=== PATIENT | female | born 1940 | race Caucasian/White ===

== ENCOUNTER → 2017-08-23 16:49 | Outpatient (CLI) | payer MEDICARE | END | disposition home or self-care (01) | LOC: D.MRI 16:49 | DX: M54.5 Low back pain (principal) ==

== ENCOUNTER → 2020-05-11 09:35 | Outpatient (CLI) | payer MEDICARE ==
--- NOTE | ~2020-05-11 | ST ---
PATIENT:TERRANCE CAMPOS MEDICAL RECORD: [id number] SEX: F LOCATION:[facility] ORDER #: ADMISSION DATE: 05/11/20 AGE OF PATIENT: 79 REFERRING PHYSICIAN: INTERPRETING PHYSICIAN: RICHARDSON MANN MD DATE OF SERVICE: 05/11/2020 NUCLEAR STRESS TEST Gated: Gated is normal, normal wall motion, normal EF, calculated EF 67%. SPECT imaging: SPECT imaging was performed. FINDINGS: Short axis view: Short axis view shows a reversible anterior defect. This was confirmed. Horizontal axis: Horizontal axis view shows reversible anterior defect along the anterior and anterior apical region. Vertical axis: Vertical axis confirms apical reversible defect. FINAL IMPRESSION: 1. Normal gated, normal wall motion, normal EF 67%. 2. Abnormal SPECT imaging with reversible defect seen in all 3 views. Severity is moderate, defect size is medium. This patient with new onset of symptoms. Scan is consistent with a new onset of ischemic coronary artery disease. Diagnostic angiography is recommended if clinically indicated. TRANSINT:[id number] Voice Confirmation ID: [id number] DOCUMENT ID: [id number] RICHARDSON MANN MD CC: [id number] DICTATION DATE: 05/12/20 09 MATHEMATICAL STATISTICIAN: 05/12/202122 DEP CLI 05/11/20 [facility] [address] [id number]
== END | disposition home or self-care (01) ==
LOC: D.HCCARDIO 09:35 → D.HCCECHO 12:30
PROVIDERS: ATTEND Internal Medicine Interventional Cardiology
DX: I20.9 Angina pectoris, unspecified (principal)

== ENCOUNTER → 2020-05-26 11:04 | Day surgery (SDC) | payer MEDICARE ==
[~2020-05-26] VITALS: Ht 162.6 cm; Wt 86.9 kg
--- NOTE | ~2020-05-26 | HEMODYNAMI ---
PATIENT:TERRANCE CAMPOS MEDICAL RECORD: [id number] : 36 [facility]ATION:[facility] ADMISSION DATE: 05/26/20 Generatedon:113:44 Patient name: TERRANCE CAMPOS Patient #: [id number] SSN: [id number] : 1940 Date of study: 05/26/2020 Page: Of Hemodynamic Procedure Report Patient Data Patient Demographics Procedure consent was obtained First Name: TERRANCE Gender: Female Last Name: BETH : 1940 Middle Initial: A Age: 79 year(s) Patient #: [id number] Race: SSN: [id number] Additional ID: [id number] Contact details Address: [address] [place] [address] State: [place] City: [place] Zip code: [address] Admission Admission Data Admission Date: 05/26/2020 Admission Time: 11:04 Arrival Date: 05/26/2020 Arrival Time: 13:00 Admit Source: Other Insurance Payor: Medicare Height (in.): 63.78 BSA: 1.92 (m2) Height (cm.): 162 BMI: 33.11 (kg/m2) Weight (lbs.): 191.58 Weight (kg.): 86.9 Lab Results Lab Result Date: 05/26/2020 Lab Result Time: 0:00 Biochemistry Name Units Result Min Max BUN mg/dl 18 --(---*)-- 7 18 Creatinine mg/dl 0.9 --(-*--)-- 0.6 1.3 CBC Name Units Result Min Max Hemoglobin g/dl 12.7 -*(----)-- 13.5 17.5 Procedure Procedure Types Cath Procedure Diagnostic Procedure [facility] w/Coronaries FFR/IVUS FFR Initial FFR Additional Sedation Charges Moderate Sedation 25-39 minutes PCI Procedure Coronary Stent Hemochron ACT Test Procedure Description Procedure Date Procedure Date: 05/26/2020 Procedure Start Time: 13:07 Procedure End Time: 13:40 Procedure Staff Name Function Rodrigue Manjarrez MD Performing Physician Kari Stiles RT Monitor Preeti Sharma RT Scrub Levon Felix RN Nurse Indication Chest pain Procedure Data Cath Procedure Fluoroscopy Diagnostic fluoroscopy Total fluoroscopy Time: 6.4 time: 6.4 min min Diagnostic fluoroscopy Total fluoroscopy dose: 782 dose: 782 mGy mGy Contrast Material Contrast Material Type Amount (ml) Isovue 300 125 Entry Location Entry Primary Successful Side Size Upsize Upsize Entry Closure Succes sful Closure Location (Fr) 1 (Fr) 2 (Fr) Remarks Device Remarks Femoral Right 5 Fr Exoseal artery Estimated blood loss: 5 ml Diagnostic catheters Device Type Used For End Catheter Placement MULTIPACK JL 4.0 5Fr Left Coronary catheter Angiography DIAGNOSTIC JL 5 5Fr Left Coronary catheter ([id number]) Angiography MULTIPACK 3DRC 5Fr Right Coronary catheter Angiography MULTIPACK Pigtail 5 Fr LV Angiography catheter MULTIPACK JL 4.0 5Fr Pressure catheter Measurement Procedure Complications No complications Procedure Medications Medication Administration Route Dosage 0.9% NaCl I.V. 100 ml/hr Oxygen etCO2 Nasal cannula 2 l/min Heparin Flush Bag added to field 2 bags (1000units/500ml NS) Lidocaine 2% added to field 20 Versed I.V. 1 mg Fentanyl I.V. 25 mcg Benadryl I.V. 50 mg Fentanyl I.V. 25 mcg Heparin Bolus I.V. 5000 units Hemodynamics Rest BSA: 1.92 (m2) HGB: 12.7 (g/dl) O2 Consumption: Estimated: 165.38 (ml/min) O2 Co nsumption indexed: Estimated:86.14 (ml/min/m) Heart Rate: 61 (bpm) Pressure Samples Time Site Value (mmHg) Purpose Heart Use Rate(bpm) 13:19 LV 134/27,54 Snapshot 77 13:19 AO 162/68(110) Pullback 75 13:19 LV 168/-6,17 Pullback 75 Gradients Valve Time Site 1 Site 2 Mean SEP/DFP Peak To Heart Use (mmHg) (sec/min) Peak Rate (mmHg) (bpm) Aortic 13:19 LV AO 8 25 6 75 168/-6,17 162/68(110) Calculations Valve P-P Mean Valve Index Valve Source Name Gradient Area Flow (cm2) Aortic 6 8 6 8 Snapshots Pre Cath Intra NCS Post Cath Vital Signs Time Heart Resp SPO2 etCO2 NIBP (mmHg) Rhythm Pain Sedation Rate (ipm) (%) (mmHg) Status Level (bpm) 12:53:13 57 14 100 37.9 171/71(112) NSR 0 (11) 10(A) , No pain 12:57:33 62 14 98 40.9 164/70(94) NSR 0 (11) 10(A) , No pain 13:01:51 72 11 97 0 156/75(114) NSR 0 (11) 10(A) , No pain 13:06:05 72 14 97 0 154/78(112) NSR 0 (11) 10(A) , No pain 13:10:19 74 16 97 0 149/81(111) NSR 0 (11) 10(A) , No pain 13:14:35 72 15 96 42.4 156/72(115) NSR 0 (11) 10(A) , No pain 13:18:47 72 15 96 38 142/77(112) NSR 0 (11) 10(A) , No pain 13:23:01 71 15 94 34.2 144/73(115) NSR 0 (11) 9(A) , No pain 13:27:15 69 15 96 40.9 150/73(111) NSR 0 (11) 9(A) , No pain 13:31:31 65 14 96 39.4 148/73(110) NSR 0 (11) 9(A) , No pain 13:35:47 63 16 96 36.4 150/71(119) NSR 0 (11) 10(A) , No pain 13:40:01 61 9 96 1.4 147/73(118) NSR 0 (11) 10(A) , No pain Medications Time Medication Route Dose Verified Delivered Reason Notes Effectiveness by by 12:57:04 0.9% NaCl I.V. 100 Levon Levon Per physician ml/hr Isidro Felix RN RN 12:57:14 Oxygen etCO2 2 Levon Levon for low 02 sats Nasal l/min Isidro Felix cannula RN RN 12:57:24 Heparin Flush added 2 Levon Levon used for Bag to bags Isidro Felix procedure (1000units/500ml field RN RN NS) 12:57:34 Lidocaine 2% added 20ml Levon Levon for local to vial Isidro Felix anesthetic field RN RN 12:57:42 Versed I.V. 1 mg Levon Levon for sedation Isidro Felix RN RN 12:57:51 Fentanyl I.V. 25 Levon Levon for sedation tisha Felix RN RN 12:58:00 Benadryl I.V. 50 mg Levon Levon Per physician Isidro Felix RN RN 13:04:57 Fentanyl I.V. 25 Levon Levon for sedation tisha Felix RN RN 13:23:51 Heparin Bolus I.V. 5000 Levon Levon for units Isidro Felix anticoagulation RN side seam tender Log Time Note 12:37:41 Informed consent obtained and on chart 12:38:02 Diagnostic Cath Status : Elective 12:38:19 Indication : Chest pain 12:38:25 Admit Source: Other 12:38:27 ACC Patient presents with Stable Angina CCS Anginal Class 2--Slight limitation of ordinary activity. 12:38:30 Procedure Status Elective Heart Cath (OP). 12:38:34 Time tracking: Regular hours (M-F 7:00 - 5:00) 12:38:38 Plan of Care:Hemodynamics will remain stable., Cardiac rhythm will remain stable., Comfort level will be maintained., Respiratory function will remain adequate., Patient/ family verbilizes understanding of procedure., Procedure tolerated without complication., Recovers from procedure without complications.. 12:38:42 Levon Felix RN sent for patient. Start room use. 12:43:12 H&P Date Dictated: 04/30/2020 Within 30 days and on chart.. 12:43:14 Pre-procedure instructions explained to patient. 12:43:14 Pre-op teaching completed and patient verbalized understanding. 12:43:15 Family in waiting room. 12:43:17 Patient NPO since Midnight. 12:43:25 Alarms reviewed by R. N. 12:43:25 Sharps counted by scrub and verified by R.N. 12:50:50 Patient received from Pre/Post Procedure Room to CCL 2 Alert and oriented. Tansferred to table in Supine position. 12:50:51 Warm blankets applied, and delia hugger turned on for patient comfort. 12:50:51 Correct patient and procedure confirmed by team. 12:50:52 Baseline sample Acquired. 12:50:52 ECG and BP/O2 sat monitors applied to patient. 12:50:52 Vital chart was started 12:51:31 Rhythm: sinus rhythm 12:51:34 Full Disclosure recording started 12:51:41 Is the patient allergic to Iodine/contrast media? No. 12:51:46 Was the patient premedicated? No 12:51:48 Is patient on blood thinner?No 12:51:49 Patient diabetic? No. 12:51:58 Previous problem with sedation/anesthesia? No ? 12:52:00 Snore? Yes 12:52:02 Sleep apnea? No 12:52:02 Deviated septum? No 12:52:03 Opens mouth fully? Yes 12:52:04 Sticks out tongue? Yes 12:52:06 Airway obstruction? No ? 12:52:10 Dentures? Yes in tight 12:52:14 Pre procedure: right dorsailis pedis pulse 2+ Normal; easily identifiable; not easily obliterated 12:52:16 Pre procedure: left dorsailis pedis pulse 2+ Normal; easily identifiable; not easily obliterated 12:52:18 Patient pain scale 0/10 ?. 12:52:23 IV patent on arrival in right forearm with 0.9% NaCl at [facility]. 12:52:25 Lab results completed and on chart. 12:53:19 Stress Test: no; N/A ? 12:53:23 Right groin area was prepped with chlora-prep and draped in sterile fashion 12:53:26 Physician arrived 12:53:26 --------ALL STOP TIME OUT------ 12:53:26 Final Timeout: patient, procedure, and site verified with staff and physician. All members of the team are in agreement. 12:53:30 Right groin site verified by team. 12:53:33 Fire Safety Assessment: A--An alcohol-based skin anteseptic being used preoperatively., C--Open oxygen or nitrous oxide is being used., D--An ESU, laser, or fiber-optic light is being used. 12:53:36 Physical assessment completed. ASA score P 2 - A patient with mild systemic disease as per Rodrigue Manjarrez MD. 12:57:04 0.9% NaCl 100 ml/hr I.V. was administered by Levon Felix RN; Per physician; Verbal order read back and verified. 12:57:14 Oxygen 2 l/min etCO2 Nasal cannula was administered by Levon Felix RN; for low 02 sats; Verbal order read back and verified. 12:57:22 Lab Result : BUN 18 mg/dl 12:57:22 Lab Result : Hemoglobin 12.7 g/dl 12:57:22 Lab Result : Creatinine 0.9 mg/dl 12:57:24 Heparin Flush Bag (1000units/500ml NS) 2 bags added to field was administered by Levon Felix RN; used for procedure; Verbal order read back and verified. 12:57:29 2) 60-89 Mildly reduced kidney function, and other findings (as for stage 1) point to kidney disease. 12:57:34 Lidocaine 2% 20ml vial added to field was administered by Levon Felix RN; for local anesthetic; Verbal order read back and verified. 12:57:42 Versed 1 mg I.V. was administered by Levon Felix RN; for sedation; Verbal order read back and verified. 12:57:51 Fentanyl 25 mcg I.V. was administered by Levon Felix RN; for sedation; Verbal order read back and verified. 12:58:00 Benadryl 50 mg I.V. was administered by Levon Felix RN; Per physician; Verbal order read back and verified. 12:58:31 Maximum allowable contrast dose (3.7 X eGFR X 0.75)177 ml. 12:58:35 Sedation plan: IV Moderate Sedation Medication:Versed, Fentanyl 12:59:32 Use device set Femoral Dx 12:59:33 ACIST Syringe (00343) opened to sterile field. 12:59:33 Bag Decanter () opened to sterile field. 12:59:34 Medline Cath Pack ([id number]) opened to sterile field. 12:59:35 ACIST Hand Control (61496) opened to sterile field. 12:59:35 ACIST Manifold (61383) opened to sterile field. 12:59:36 DIAGNOSTIC Multipack 5Fr catheter set (IH7120) opened to sterile field. 12:59:36 Tegaderm 4 x 4 (1626W) opened to sterile field. 12:59:37 SHEATH 5FR [place] (VSE661) opened to sterile field. 12:59:37 EMERALD Guide Wire (789-645) opened to sterile field. 13:02:44 Arrival Date: 05/26/2020 1:00:00 PM 13:03:02 Patient Height : 63.78 inches 13:03:04 Patient Weight : 191.58 lbs 13:03:10 Insurance Payor : Medicare 13:04:57 Fentanyl 25 mcg I.V. was administered by Levon Felix RN; for sedation; Verbal order read back and verified. 13:07:26 Procedure started. 13:07:29 Local anesthetic to right femoral artery with Lidocaine 2% by Rodrigue Manjarrez MD.INITIAL ACCESS ONLY 13:08:12 A 5 Fr sheath was inserted into the Right Femoral artery 13:08:19 A MULTIPACK JL 4.0 5Fr catheter was advanced over the wire and used for Left Coronary Angiography. 13:08:26 Zero performed for pressure channel P1 13:08:30 Zero performed for pressure channel P1 13:08:34 Zero performed for pressure channel P1 13:10:26 LCA angiography performed. 13:10:32 Injector settings: Ml/sec: 3, Volume: 6, 13:11:48 Catheter removed. 13:12:00 A DIAGNOSTIC JL 5 5Fr catheter ([id number]) was advanced over the wire and used for Left Coronary Angiography. 13:13:27 LCA angiography performed. 13:13:29 Injector settings: Ml/sec: 3, Volume: 6, 13:14:48 Catheter removed. 13:14:54 A MULTIPACK 3DRC 5Fr catheter was advanced over the wire and used for Right Coronary Angiography. 13:17:14 RCA angiography performed. 13:17:17 Injector settings: Ml/sec: 3, Volume: 6, 13:17:26 Catheter removed. 13:17:31 A MULTIPACK Pigtail 5 Fr catheter was advanced over the wire and used for LV Angiography. 13:19:03 LV hemodynamics recorded. 13:19:05 LV gram done using ALLEN 13:19:07 Injector settings: Ml/sec: 5, Volume: 15, 13:19:28 EF : 60 % 13:19:48 Catheter removed. 13:20:02 Proceeding to intervention. 13:20:16 A MULTIPACK JL 4.0 5Fr catheter was advanced over the wire and used for Pressure Measurement. 13:20:52 ACC Pre-intervention THEODORE Flow is 3. 13:21:04 Pressure wire advanced. 13:23:19 INFLATOR Merit BasixCompak (VI0316) opened to sterile field. 13:23:20 TUBING High Pressure Extension Tubing (Manjarrez) ([id number]) opened to sterile field. 13:23:21 Rawlings OmniWire (67056) opened to sterile field. 13:23:41 Baseline FFR 1. 13:23:51 Heparin Bolus 5000 units I.V. was administered by Levon Felix RN; for anticoagulation; Verbal order read back and verified. 13:26:11 Wire advanced across lesion. 13:32:57 pLAD lesion measured at 0.78 with IFR 13:33:06 Diag1 lesion measured at 0.89 with IFR 13:34:18 Wire removed. 13:34:19 Guide catheter removed. 13:34:26 EXOSEAL 5Fr (EX500) opened to sterile field. 13:34:39 Sheath removed intact; hemostasis achieved with Exoseal to the Right Femoral artery. 13:34:41 Procedure ended.(Physican Out) 13:35:41 Fluoroscopy time 06.40 minutes. 13:37:27 Fluoroscopy dose: 782 mGy 13:37:27 Flurop Dose total: 782 13:37:34 Dose Area Product 44696 mGy/cm. 13:37:38 Contrast amount:Isovue 300 125ml. 13:37:46 Maximum allowable dose exceeded? No. 13:37:47 Sharps counted by scrub and verified by R.N. 13:37:48 Insertion/operative site no bleeding no hematoma. 13:37:50 Post-op/insertion site Right Femoral artery dressed using a 4 x 4 and Tegaderm. 13:37:54 Post right femoral artery:stable 13:37:56 Post Procedure Pulses reassessed and unchanged 13:37:58 Post procedure rhythm: unchanged. 13:38:01 Estimated blood loss: 5 ml 13:38:02 Post procedure instruction explained to patient.Patient verbalizes understanding. 13:38:03 Patient needs reinforcement of post procedure teaching. 13:38:24 Procedure type changed to Cath procedure, Diagnostic procedure, LHC, LHC w/Coronaries, FFR/IVUS, FFR Initial, FFR Additional, Sedation Charges, Moderate Sedation 25-39 minutes, PCI procedure, Coronary Stent, Hemochron ACT Test 13:39:45 Procedure and supply charges have been captured, reviewed, submitted and are correct. 13:39:51 Procedure Complication : No complications 13:39:54 Vital chart was stopped 13:39:59 [facility] Findings: MVD- MD will discuss options w/ pt 13:40:00 Operative report dictated upon procedure completion. 13:40:01 See physician's report for complete and final results. 13:40:04 Report given to Pre/Post Procedure Room. 13:40:06 Patient transfered to Pre/Post Procedure Room with Stretcher. 13:40:08 Procedure ended. 13:40:08 Full Disclosure recording stopped 13:40:14 End room use (Document Last) 13:40:26 ACT drawn and resulted at 300 seconds. (normal therapeutic range 180-240 seconds). 13:43:04 End room use (Document Last) 13:43:41 End room use (Document Last) Device Usage Item Name Manufacture Quantity Catalog Hospital Part Current Minimal L ot# / Number Charge Number Stock Stock Serial# Code ACIST Acist 1 53396 343885 054826 622209 20 Syringe Medical (09227) Systems Inc Bag Microtek 1 2001S 550675 60010 693544 5 Decanter Medical Inc. () Medline Medline 1 [id number] 036464 68873 453851 5 Cath Pack ([id number]) ACIST Hand Acist 1 15701 323407 331181 205282 5 Control Medical (32279) Systems Inc ACIST Acist 1 36449 857390 879620 540256 5 Manifold Medical (95237) Systems Inc DIAGNOSTIC Cardinal 1 AL9942 399979 41292 863138 30 Multip5minutes 5Fr catheter set (QW2904) Tegaderm 4 3M 1 1626W 944238 353894 779283 5 x 4 (1626W) SHEATH 5FR Terumo 1 UMO856 322920 251717 789685 5 [place] (HGT682) EMERALD Cardinal 1 502-455 054043 312069 975765 5 Guide Wire Semtek Innovative Solutions (502-473) MULTIPACK Cardinal 1 434440 5 JL 4.0 5Fr Health catheter DIAGNOSTIC Cardinal 1 [id number] 262209 575312 242985 5 JL 5 5Fr Health catheter (433905E) MULTIPACK Cardinal 1 373677 5 3DRC 5Fr Health catheter MULTIPACK Cardinal 1 097139 5 Pigtail 5 Health Fr catheter INFLATOR Merit 1 JY0349 894229 097566 376423 15 Merit Medical BasixCompak (QZ3129) TUBING High Merit 1 [id number] 476761 63762 986957 10 Pressure Medical Extension Tubing (Manjarrez) ([id number]) Rawlings Rawlings 1 0534749 652969 72890 9983 5 OmniWire (86969) EXOSEAL 5Fr Cardinal 1 EX500 231793 408807 350411 10 (EX500) Health Signature Audit [place] Stage Time Signature Unsigned Intra-Procedure 05/26/2020 Kari Stiles 1:43:04 PM RT(R) Intra-Procedure 05/26/2020 Levon 1:43:41 PM Isidro RN Intra-Procedure 05/26/2020 Rodrigue Manjarrez MD 1:44:03 PM Signatures Performing Physician : Signature : Rodrigue Manjarrez MD Date : Time : Monitor : Kari Stiles RT Signature : Date : Time : Nurse : Levon Felix Signature : RN Date : Time : [facility] [address] [place] [address]
[~2020-05-26 11:04] MED LIST: LEVOTHYROXINE100 MCG PO; OMEPRAZOLE20 M1 PO; OXYBUTYNIN CHLOR5 MG PO; VITAMIN B-12100 MCG PO; VITAMIN B-625 MG PO; VOLTAREN75 MG PO
[2020-05-26 11:39] VITALS: BP 171/79; Ht 162.6 cm; Wt 86.9 kg
[2020-05-26 11:44] LABS: BASOPHILS 0.2 % (0-2); EOSINOPHILS 2.3 % (0-7); HEMATOCRIT 40.3 % (36.0-48.0); HEMOGLOBIN 12.7 g/dL (12-16); IMMATURE GRANULOCYTES 0.3 % (0-5); LYMPHOCYTE ABS# 1.99 10x3/uL (1.18-3.74); LYMPHOCYTES 33.1 % (15-50); MCH 31.1 pg (26.0-34.0); MCHC 31.5 g/dL (31.0-37.0); MCV 98.5 fL (80.0-100.0); MEAN PLATELET VOLUME 9.9 fL (7.4-10.4); MONOCYTES 8.3 % (2-11); NEUTROPHIL ABS# 3.35 10x3/uL (1.56-6.13); NEUTROPHILS 55.8 % (40-80); PLATELET COUNT 260 10x3/uL (130-400); RBC 4.09 10x6/uL (4.00-5.40); RDW 12.9 % (11.5-14.5)
[2020-05-26 12:02] LABS: ANION GAP 14.8 mmol/L (8-16); CARBON DIOXIDE 24.6 mmol/L (21.0-32.0); CHOL - HDL RATIO 5.7 ratio (2.3-4.1); CREATININE - SERUM 0.9 mg/dL (0.6-1.3); POTASSIUM - SERUM 5.4 mmol/L (3.5-5.1)
--- NOTE | 2020-05-26 13:55 | NUR ---
PT RECEIVED VIA STRETCHER BACK TO ROOM 5 FOR RECOVERY. PT AWAKE BUT DROWSY, DENIES PAIN OR DISCOMFORT AT THIS TIME. IV PATENT INFUSING VIA ORDERS. PT PLACED ON CARDIAC MONITORS, HR NSR RATE 62, BP 154/56, RR 12, SAT 97 ON ROOM AIR. 5FR EXOCELE TO R GROIN, SITE SOFT. LG TEGADERM DRESSING CDI NO S/S HEMATOMA OR BLEEDING NOTED. LEG PINK AND WARM, PEDAL PULSES PALPABLE. AT BS, CALL LIGHT IN REACH.
--- NOTE | 2020-05-26 14:15 | NUR ---
PT STILL ON BEDPAN UNABLE TO VOID YET. R GROIN SOFT, DRESSING CDI NO S/S HEMATOMA OR BLEEDING NOTED. LEG PINK AND WARM, PEDAL PULSES PALPABLE. VSS AT PRESENT. CALL LIGHT IN REACH
--- NOTE | 2020-05-26 15:00 | NUR ---
PT VOIDED 300CC CLEAR YELLOW URINE VIA BEDPAN. SIPS OF PO FLUIDS GIVEN PER REQUEST. VSS. AT BS, CALL LIGHT IN REACH
--- NOTE | 2020-05-26 15:30 | NUR ---
R GROIN SOFT, DRESSING CDI NO S/S HEMATOMA OR BLEEDING NOTED. HOB ELEVATED SLIGHTLY. PT TOLERATING PO FLUIDS, OFFERED SANDWICH BUT SHE DECLINES AT THIS TIME. DR HYDE IN AND DISCUSSED W PT AND PLAN OF CARE AND PROCEDURE RESULTS, NO NEW ORDERS RECEVIED. CALL LIGHT IN REACH, VSS AT PRESENT.
--- NOTE | 2020-05-26 16:18 | NUR ---
DISCHARGE INSTRUCTIONS REVIEWED W PT AND . INFORMED THEM THAT DR SPAULDING'S OFFICE WILL BE CALLING THEM TO SET UP AN APPOINTMENT. BOTH VERBALIZED UNDERSTANDING. IV REMOVED W CATH INTACT, MONITORS REMOVED. R GROIN REMAINS SOFT, NO S/S HEMATOMA OR BLEEDING. PT UP TO DRESS FOR DISCHARGE
--- NOTE | 2020-05-26 16:29 | NUR ---
PT AMBULATED TO BR, VOIDING W/O DIFFICULITY. 1635 PT DISCHARGED VIA WC TO FAMILY WAITING IN PRIVATE VEHICLE. PT HAD ALL BELONGINGS AND DISCHARGE PAPERWORK.
== END | disposition home or self-care (01) ==
LOC: D.CATH 11:04
PROVIDERS: ATTEND Internal Medicine Cardiovascular Disease
DX: I20.8 Other forms of angina pectoris (principal); R94.39 Abnormal result of other cardiovascular function study; R07.9 Chest pain, unspecified

== ENCOUNTER → 2020-06-04 08:56 | Outpatient (CLI) | payer MEDICARE ==
[2020-05-26 11:39] VITALS: BMI 32.9
[~2020-06-04 08:56] MED LIST changes: +BAYER CHEWABLE81 MG PO; +PLAVIX75 MG PO; +PRAVACHOL20 MG PO
== END | disposition home or self-care (01) ==
LOC: D.US 08:56
PROVIDERS: ATTEND Thoracic Surgery (Cardiothoracic Vascular Surgery)
DX: I65.29 Occlusion and stenosis of unspecified carotid artery (principal)

== ENCOUNTER 2020-06-07 07:31 | Day surgery (SDC) | payer MEDICARE ==
[~2020-06-07] VITALS: Ht 162.6 cm; Wt 74.3 kg
--- NOTE | ~2020-06-07 | HEMODYNAMI ---
PATIENT:TERRANCE CAMPOS MEDICAL RECORD: [id number] : 36 LOCATION:[facility] ADMISSION DATE: 06/07/20 Generatedon::42 Patient name: TERRANCE CAMPOS Patient #: [id number] SSN: [id number] : 1940 Date of study: 06/07/2020 Page: Of Hemodynamic Procedure Report Patient Data Patient Demographics Procedure consent was obtained First Name: TERRANCE Gender: Female Last Name: BETH : 1940 Middle Initial: A Age: 79 year(s) Patient #: [id number] Race: SSN: [id number] Additional ID: [id number] Contact details Address: [address] [place] [address] State: [place] City: [place] Zip code: [address] Past Medical History Allergies: No known allergies Admission Admission Data Admission Date: 06/07/2020 Admission Time: 7:31 Arrival Date: 06/07/2020 Arrival Time: 0:00 Admit Source: Other Insurance Payor: Medicare [facility] #: [id number] Height (in.): 64 BSA: 1.8 (m2) Height (cm.): 162.56 BMI: 28.11 (kg/m2) Weight (lbs.): 163.74 Weight (kg.): 74.27 Lab Results Lab Result Date: 06/07/2020 Lab Result Time: 0:00 Biochemistry Name Units Result Min Max BUN mg/dl 22 --(----)-* 7 18 Creatinine mg/dl 1 --(--*-)-- 0.6 1.3 eGFR ml/min 56 *-(----)-- 90 120 NONAFRICAN CBC Name Units Result Min Max Hematocrit % 39.1 -*(----)-- 42 54 Hemoglobin g/dl 12.3 *-(----)-- 13.5 17.5 Procedure Procedure Types Cath Procedure Diagnostic Procedure FFR/IVUS FFR Initial Sedation Charges Moderate Sedation 40-54 minutes PCI Procedure Coronary Stent Coronary Stent Initial Hemochron ACT Test Procedure Description Procedure Date Procedure Date: 06/07/2020 Procedure Start Time: 8:57 Procedure End Time: 9:39 Procedure Staff Name Function Rodrigue Kern MD Performing Physician Levon Felix RN Nurse Kari Stiles RT Scrub Angela Pro RN Event Management Consultant Preeti Sharma RT Monitor Procedure Data Cath Procedure Fluoroscopy Diagnostic fluoroscopy Total fluoroscopy Time: 9.6 time: 9.6 min min Diagnostic fluoroscopy Total fluoroscopy dose: dose: 1124 mGy 1124 mGy Contrast Material Contrast Material Type Amount (ml) Isovue 370 150 Entry Location Entry Primary Successful Side Size Upsize Upsize Entry Closure Succes sful Closure Location (Fr) 1 (Fr) 2 (Fr) Remarks Device Remarks Femoral Right 6 Fr Exoseal artery Short Estimated blood loss: 10 ml Procedure Complications No complications Procedure Medications Medication Administration Route Dosage Oxygen etCO2 Nasal cannula 2 l/min Lidocaine 2% added to field 20 Heparin Flush Bag added to field 2 bags (1000units/500ml NS) 0.9% NaCl I.V. 100 ml/hr Versed I.V. 1 mg Fentanyl I.V. 50 mcg Versed I.V. 1 mg Fentanyl I.V. 50 mcg Heparin Bolus I.V. 7500 units Plavix P.O. 600 mg Hemodynamics Rest BSA: 1.8 (m2) HGB: 12.3 (g/dl) O2 Consumption: Estimated: 162.41 (ml/min) O2 Con sumption indexed: Estimated:90.23 (ml/min/m) Heart Rate: 71 (bpm) Snapshots Pre Cath Intra NCS Post Cath Vital Signs Time Heart Resp SPO2 etCO2 NIBP (mmHg) Rhythm Pain Sedation Rate (ipm) (%) (mmHg) Status Level (bpm) 8:42:45 73 14 96 0 Measuring NSR 0 (11) 10(A) , No pain 8:46:34 68 13 96 0 148/59(93) NSR 0 (11) 10(A) , No pain 8:53:26 66 13 97 0 143/64(107) NSR 0 (11) 10(A) , No pain 8:57:44 66 12 99 0 141/63(104) NSR 0 (11) 9(A) , No pain 9:02:00 68 14 95 0 141/68(98) NSR 0 (11) 9(A) , No pain 9:06:20 77 22 95 0 126/53(92) NSR 0 (11) 9(A) , No pain 9:10:30 77 16 95 0 138/63(101) NSR 0 (11) 9(A) , No pain 9:14:46 81 13 97 0 131/64(91) NSR 0 (11) 9(A) , No pain 9:19:02 78 11 97 0 145/55(99) NSR 0 (11) 9(A) , No pain 9:23:20 78 11 97 0 149/66(111) NSR 0 (11) 9(A) , No pain 9:27:38 83 14 96 0 149/68(110) NSR 0 (11) 9(A) , No pain 9:31:57 79 13 97 0 141/66(107) NSR 0 (11) 10(A) , No pain 9:36:12 75 15 97 0 148/64(107) NSR 0 (11) 10(A) , No pain 9:40:33 75 12 96 0 139/59(101) NSR 0 (11) 10(A) , No pain Medications Time Medication Route Dose Verified Delivered Reason Notes Effectiveness by by 8:50:05 Oxygen etCO2 2 Rodrigue Buffie used for Nasal l/min Loki Pro RN procedure cannula 8:50:42 Lidocaine 2% added 20ml Rodrigue Rodrigue for local to vial Loki Kern MD anesthetic field 8:50:49 Heparin Flush added 2 Rodrigue Rodrigue used for Bag to bags Loki Kern MD procedure (1000units/500ml field NS) 8:51:01 0.9% NaCl I.V. 100 Rodrigue Buffie used for ml/hr Loki Pro RN procedure 8:56:41 Versed I.V. 1 mg Rodrigue Buffie for sedation Loki Pro RN 8:56:47 Fentanyl I.V. 50 Rodrigue Buffie for sedation mcg Loki Pro RN 9:00:31 Versed I.V. 1 mg Rodrigue Buffie for sedation Loki Pro RN 9:00:36 Fentanyl I.V. 50 Rodrigue Buffie for sedation mcg Loki Pro RN 9:02:45 Heparin Bolus I.V. 7500 Rodrigue Miller for verifi ed units Loki Pro RN anticoagulation with dr kern 9:36:45 Plavix P.O. 600 Rodrigue Miller for mg Loki Pro RN antiplatelet therapy Procedure Log Time Note 8:07:45 Informed consent obtained and on chart 8:07:57 Diagnostic Cath Status : Elective 8:08:11 Arrival Date: 06/07/2020 12:00:00 AM 8:08:11 Admit Source: Other 8:08:16 Insurance Payor : Medicare 8:09:25 Patient allergic to No known allergies 8:24:15 ACC Patient presents with Stable Angina CCS Anginal Class 2--Slight limitation of ordinary activity. 8:24:21 Procedure Status PCI. 8:24:23 Time tracking: Regular hours (M-F 7:00 - 5:00) 8:24:28 Plan of Care:Hemodynamics will remain stable., Cardiac rhythm will remain stable., Comfort level will be maintained., Respiratory function will remain adequate., Patient/ family verbilizes understanding of procedure., Procedure tolerated without complication., Recovers from procedure without complications.. 8:24:37 H&P Date Dictated: 06/07/2020 New H&P dictated by physician.. 8:24:39 Family in waiting room. 8:24:41 Patient NPO since Midnight. 8:24:51 Lab results pending. 8:24:54 Alarms reviewed by R. N. 8:24:55 Sharps counted by scrub and verified by R.N. 8:27:51 Kari Stiles RT(R) sent for patient. Start room use. 8:28:28 Patient Height : 64 inches 8:28:37 Patient Weight : 163.74 lbs 8:31:29 Patient received from Pre/Post Procedure Room to CCL 2 Alert and oriented. Tansferred to table in Supine position. 8:31:33 Warm blankets applied, and delia hugger turned on for patient comfort. 8:31:34 Correct patient and procedure confirmed by team. 8:31:34 ECG and BP/O2 sat monitors applied to patient. 8:31:36 Pre-procedure instructions explained to patient. 8:31:36 Pre-op teaching completed and patient verbalized understanding. 8:40:56 Vital chart was started 8:40:57 Full Disclosure recording started 8:41:02 Is the patient allergic to Iodine/contrast media? No. 8:41:03 Was the patient premedicated? Yes 8:41:04 Is patient on blood thinner?Yes 8:41:07 ACC The patient was administered the following blood thiners within the last 24 hours: ACCAspirin 8:41:09 If diabetic: On Metformin? No 8:41:13 Patient diabetic? No. 8:41:16 Patient not . Patient is over age 55. 8:41:17 ----Pre-sedation anethsthesia assessment.---- 8:41:20 Previous problem with sedation/anesthesia? No ? 8:41:21 Snore? Yes 8:41:22 Sleep apnea? No 8:41:23 Deviated septum? No 8:41:25 Opens mouth fully? Yes 8:41:27 Sticks out tongue? Yes 8:41:28 Airway obstruction? No ? 8:41:30 Dentures? No ? 8:41:34 Patient pain scale 0/10 ?. 8:41:41 IV patent on arrival in left hand with 0.9% NaCl at [facility]. 8:41:49 Right groin area was prepped with chlora-prep and draped in sterile fashion 8:41:53 Use device set Femoral Dx 8:41:54 ACIST Syringe (02252) opened to sterile field. 8:41:55 Bag Decanter (2002) opened to sterile field. 8:41:56 Medline Cath Pack ([id number]) opened to sterile field. 8:41:57 ACIST Hand Control (64266) opened to sterile field. 8:41:58 ACIST Manifold (12502) opened to sterile field. 8:42:01 EMERALD Guide Wire (735-981) opened to sterile field. 8:42:03 Use device set KERN PCI 8:42:05 INFLATOR Merit BasixCompak (VW5434) opened to sterile field. 8:42:06 TUBING High Pressure Extension Tubing (Kern) ([id number]) opened to sterile field. 8:42:08 SHEATH 6FR Groves (YVD527) opened to sterile field. 8:42:10 BMW 300cm [place] 2 J wire ([id number]) opened to sterile field. 8:42:26 Baseline sample Acquired. 8:42:30 Rhythm: sinus rhythm 8::42 Lab Result : Hemoglobin 12.3 g/dl 8:: Lab Result : Hematocrit 39.1 % 8:50:05 Oxygen 2 l/min etCO2 Nasal cannula was administered by Angela Pro RN; used for procedure; Verbal order read back and verified. 8:50:42 Lidocaine 2% 20ml vial added to field was administered by Rodrigue Kern MD; for local anesthetic; Verbal order read back and verified. 8:50:49 Heparin Flush Bag (1000units/500ml NS) 2 bags added to field was administered by Rodrigue Kern MD; used for procedure; Verbal order read back and verified. 8:51:01 0.9% NaCl 100 ml/hr I.V. was administered by Angela Pro RN; used for procedure; Verbal order read back and verified. 8:52:33 Lab Result : BUN 22 mg/dl 8:52:33 Lab Result : Creatinine 1 mg/dl 8:52:33 Lab Result : eGFR NONAFRICAN 56 ml/min 8:52:38 Lab results completed and on chart. 8:53:03 --------ALL STOP TIME OUT------ 8:53:05 Final Timeout: patient, procedure, and site verified with staff and physician. All members of the team are in agreement. 8:53:07 Right groin site verified by team. 8:53:09 Fire Safety Assessment: A--An alcohol-based skin anteseptic being used preoperatively., C--Open oxygen or nitrous oxide is being used., D--An ESU, laser, or fiber-optic light is being used. 8:53:11 Physical assessment completed. ASA score P 2 - A patient with mild systemic disease as per Rodrigue Kern MD. 8:53:13 3a) 45-59 Moderately reduced kidney function. 8:53:16 Maximum allowable contrast dose (3.7 X eGFR X 0.75)155 ml. 8:53:19 Sedation plan: IV Moderate Sedation Medication:Versed, Fentanyl 8:56:41 Versed 1 mg I.V. was administered by Angela Pro RN; for sedation; Verbal order read back and verified. 8:56:47 Fentanyl 50 mcg I.V. was administered by Angela Pro RN; for sedation; Verbal order read back and verified. 8:57:22 Procedure started. 8:57:53 Local anesthetic to right femoral artery with Lidocaine 2% by Rodrigue Kern MD.INITIAL ACCESS ONLY 8:58:56 Zero performed for pressure channel P1 9:00:31 Versed 1 mg I.V. was administered by Angela Pro RN; for sedation; Verbal order read back and verified. 9:00:36 Fentanyl 50 mcg I.V. was administered by Angela Pro RN; for sedation; Verbal order read back and verified. 9:00:46 A 6 Fr Short sheath was inserted into the Right Femoral artery 9:01:07 GUIDE 6FR XBLAD 3.5 catheter ([id number]) opened to sterile field. 9:01:09 6 Fr XBLAD 3.5 guide catheter was inserted over the wire 9:01:22 [place]awk OmniWire (56449) opened to sterile field. 9:02:45 Heparin Bolus 7500 units I.V. was administered by Angela Pro RN; for anticoagulation; verified with dr kern Verbal order read back and verified. 9:04:03 Guide catheter removed. 9:04:31 GUIDE 6FR EBU 3.5 catheter ([id number]) opened to sterile field. 9:04:49 6 Fr EBU 3.5 guide catheter was inserted over the wire 9:08:25 UNABLE TO ENGAGE WITH EBU GUIDE. 9:08:32 Guide catheter removed. 9:09:06 GUIDE 6FR JL 4.0 catheter ([id number]) opened to sterile field. 9:09:28 6 Fr JL 4.0 guide catheter was inserted over the wire 9:10:08 Pressure wire advanced. 9:17:36 Wire advanced across lesion. 9:19:03 Pre PCI Site: [place] pLAD has .66% stenosis. 9:26:24 Place stent Inflation Number: 1 A KEANU RX 2.5 x 26 stent ([id number]) was prepped and advanced across the Prox LAD . The stent was deployed at 11 ANNELIESE for 0:17 (min:sec) . 9:27:27 Stent catheter was removed intact over wire. 9:28:52 pLAD lesion measured at .86 with IFR 9:32:08 Place stent Inflation Number: 2 A KEANU RX 3.0 x 18 stent ([id number]) was prepped and advanced across the Prox LAD 85. The stent was deployed at 12 ANNELIESE for 0:25 (min:sec) . 9:32:32 Stent catheter was removed intact over wire. 9:34:22 POST P-LAD IFR MEASUREMENT .97. 9:34:56 Wire removed. 9:34:57 Guide catheter removed. 9:35:07 EXOSEAL 6Fr (EX600) opened to sterile field. 9:35:15 Sheath removed intact; hemostasis achieved with Exoseal to the Right Femoral artery. 9:35:24 Fluoroscopy time 09.60 minutes. 9:35:28 Flurop Dose total: 1124 9:35:28 Fluoroscopy dose: 1124 mGy 9:35:33 Dose Area Product 07357 mGy/cm. 9:35:36 Contrast amount:Isovue 370 150ml. 9:35:38 Maximum allowable dose exceeded? No. 9:35:39 Sharps counted by scrub and verified by R.N. 9:36:20 Tegaderm 4 x 4 (1626W) opened to sterile field. 9:36:26 Procedure ended.(Physican Out) 9:36:35 Post-op/insertion site Right Femoral artery dressed using a 4 x 4 and Tegaderm. 9:36:40 Post right femoral artery:stable, soft, clean and dry 9:36:41 Post Procedure Pulses reassessed and unchanged 9:36:44 Post procedure: right dorsailis pedis pulse 2+ Normal; easily identifiable; not easily obliterated. 9:36:45 Plavix 600 mg P.O. was administered by Angela Pro RN; for antiplatelet therapy; Verbal order read back and verified. 9:36:47 Post-procedure physical assessment completed. ASA score P 2 - A patient with mild systemic disease as per Rodrigue Kern MD. 9:36:50 Post procedure rhythm: unchanged. 9:36:53 Estimated blood loss: 10 ml 9:36:54 Post procedure instruction explained to patient.Patient verbalizes understanding. 9:36:55 Patient needs reinforcement of post procedure teaching. 9:37:44 Procedure type changed to Cath procedure, Diagnostic procedure, FFR/IVUS, FFR Initial, Sedation Charges, Moderate Sedation 40-54 minutes, PCI procedure, Coronary Stent, Coronary Stent Initial, Hemochron ACT Test 9:38:54 Procedure and supply charges have been captured, reviewed, submitted and are correct. 9:38:57 Procedure Complication : No complications 9:39:00 [facility] Findings: MVD- PCI performed (see procedure note) 9:39:01 Operative report dictated upon procedure completion. 9:39:01 See physician's report for complete and final results. 9:39:03 Report given to Pre/Post Procedure Room. 9:39:07 Patient transfered to Pre/Post Procedure Room with Stretcher. 9:39:09 Procedure ended. 9:39:09 Full Disclosure recording stopped 9:39:50 ACC-PCI Only Patient was given prescriptions, or instructed by Rodrigue Kern MD to start/continue the following medications upon discharge: Plavix 9:39:51 End room use (Document Last) 9:40:01 End room use (Document Last) 9:42:06 ACT drawn and resulted at out of range-high seconds. (normal therapeutic range 180-240 seconds). 9:42:39 Vital chart was stopped Intervention Summary Intervention Notes Time ActionType Lesion and Equipment Used Action# Pressure Duration Attributes 9:26:24 Place stent Prox LAD KEANU RX 2.5 x 1 11 00:18 26 stent ([id number]) 9:32:08 Place stent Prox LAD KEANU RX 3.0 x 2 12 00:26 18 stent ([id number]) Device Usage Item Name Manufacture Quantity Catalog Hospital Part [facility] Lot# / Number Charge Number Stock Stock Serial# Code ACIST Syringe Acist 1 79820 768863 626236 747621 20 (24600) Medical Systems Inc Bag Decanter Microtek 1 377072 60623 142726 5 () Medical Inc. Medline Cath Medline 1 [id number] 505066 44178 048615 5 Pack ([id number]) ACIST Hand Acist 1 95162 870074 143162 785197 5 Control Medical (15462) Systems Inc ACIST Manifold Acist 1 42330 459193 685555 110694 5 (03703) Medical Systems Inc EMERALD Guide Cardinal 1 492-580 396821 153061 320781 5 Wire (852-960) Health INFLATOR Merit Merit 1 EA9430 972662 599879 100740 15 Spice Online Retail Medical (EC7905) TUBING High Merit 1 [id number] 836245 53769 281319 10 Pressure Medical Extension Tubing (Kern) (PU5430E) SHEATH 6FR Terumo 1 DSK829 622168 959373 947196 40 Groves (YEI545) BMW 300cm Rabago 1 [id number] 752660 370172 166769 5 [place] 2 J Vascular wire ([id number]) GUIDE 6FR Cardinal 1 36435023 923893 396622 771608 10 XBLAD 3.5 Health catheter (15538449) Mohawk Mohawk 1 7499304 405734 46908 9971 5 OmniWire (82144) GUIDE 6FR EBU Medtronic 1 [id number] 996404 88044 274232 3 3.5 catheter (HE0ENV31) GUIDE 6FR JL Medtronic 1 HT6QH77 359474 58421 121862 1 4.0 catheter (TV8EH23) KEANU RX 2.5 x Medtronic 1 [id number] 934852 0313388 235667 5 [id number] 26 stent ([id number]) KEANU RX 3.0 x Medtronic 1 [id number] 370602 6675602 986781 5 [id number] 18 stent ([id number]) EXOSEAL 6Fr Cardinal 1 EX600 579743 556003 596783 10 (EX600) Health Tegaderm 4 x 4 3M 1 1626W 975913 897951 676916 5 (1626W) Signature Audit [place] Stage Time Signature Unsigned Intra-Procedure 06/07/2020 Preeti Sharma 9:40:20 AM RT(R) Intra-Procedure 06/07/2020 Angela Pro RN 9:41:11 AM Intra-Procedure 06/07/2020 Rodrigue Kern MD 9:42:37 AM Signatures Performing Physician : Signature : Rodrigue Kern MD Date : Time : Nurse : Levon Lorigan Signature : RN Date : Time : Monitor : Preeti Young Signature : RT Date : Time : [address] [place] [address]
[~2020-06-07 07:31] MED LIST changes: -BAYER CHEWABLE81 MG PO; -PLAVIX75 MG PO; -PRAVACHOL20 MG PO
[2020-06-07] MEDS ORDERED: BAYER CHEWABLE81 MG PO ×2 (08:04→08:05)
[2020-06-07 08:11] VITALS: BP 121/54; Ht 162.6 cm; Wt 74.3 kg
[2020-06-07 08:34] LABS: BASOPHILS 0.2 % (0-2); HEMATOCRIT 39.1 % (36.0-48.0); HEMOGLOBIN 12.3 g/dL (12-16); IMMATURE GRANULOCYTES 0.4 % (0-5); LYMPHOCYTES 30.7 % (15-50); MCH 31.3 pg (26.0-34.0); MCHC 31.5 g/dL (31.0-37.0); MCV 99.5 fL (80.0-100.0); MEAN PLATELET VOLUME 9.6 fL (7.4-10.4); MONOCYTES 9.6 % (2-11); NEUTROPHIL ABS# 2.88 10x3/uL (1.56-6.13); NEUTROPHILS 55.1 % (40-80); PLATELET COUNT 288 10x3/uL (130-400); RBC 3.93 10x6/uL (4.00-5.40); RDW 12.7 % (11.5-14.5); WBC 5.2 10x3/uL (4.8-10.8)
[2020-06-07 08:44] LABS: ANION GAP 12.5 mmol/L (8-16); CALCIUM 9.1 mg/dL (8.5-10.1); CARBON DIOXIDE 28.6 mmol/L (21.0-32.0); POTASSIUM - SERUM 4.1 mmol/L (3.5-5.1)
--- NOTE | 2020-06-07 09:59 | NUR ---
PT ARRIVED BY STRETCHER. PLACED ON MONITORS. ASSESSMENT COMPLETED. VSS AT THIS TIME. CALL LIGHT WITHIN REACH. FAMILY AT BEDSIDE.
[2020-06-07] MEDS ORDERED: PRAVACHOL20 MG PO (10:03)
[2020-06-07] MEDS ORDERED: PLAVIX75 MG PO (10:03)
--- NOTE | 2020-06-07 10:15 | NUR ---
RIGHT GROIN DRESSING C/D/I. NO S/S OF HEMATOMA NOTED. CALL LIGHT WITHIN REACH. VSS AT THIS TIME. PT C/O SOME NAUSEA. TOLERATED SIPS OF SODA. REPORTS THAT THIS IS HELPING.
--- NOTE | 2020-06-07 10:50 | NUR ---
PT ON BEDPAN. VOIDED 75cc OF CLEAR YELLOW URINE. MARIANA-CARE GIVEN. RIGHT GROIN DRESSING C/D/I. NO S/S OF HEMATOMA NOTED. CALL LIGHT WITHIN REACH. RIGHT PEDAL PULSE PALPABLE. FAMILY AT BEDSIDE.
--- NOTE | 2020-06-07 11:15 | NUR ---
PT ASKING FOR BEDPAN AGAIN TO URINATE. PLACED PUREWICK FOR PT COMFORT AND TO KEEP PT FROM FREQUENT TURNS WHILE ON BEDREST. RIGHT GROIN DRESSING C/D/I. NO S/S OF HEMATOMA NOTED. RIGHT PEDAL PULSE PALPABLE. CALL LIGHT WITHIN REACH. TOLERATING SIPS OF SODA. DENIES NAUSEA/PAIN.
--- NOTE | 2020-06-07 11:50 | NUR ---
DR. HYDE ROUNDED AND SPOKE WITH PT AND PT'S FAMILY. RIGHT GROIN DRESSING C/D/I. NO S/S OF HEMATOMA NOTED. PT DENIES NAUSEA/PAIN.
--- NOTE | 2020-06-07 12:20 | NUR ---
PT RESTING COMFORTABLY. VSS AT THIS TIME. CALL LIGHT WITHIN REACH. RIGHT GROIN DRESSING C/D/I. NO S/S OF HEMATOMA NOTED. FAMILY AT BEDSIDE. RIGHT PEDAL PULSE PALPABLE.
--- NOTE | 2020-06-07 12:47 | NUR ---
RIGHT GROIN DRESSING C/D/I. NO S/S OF HEMATOMA NOTED. CALL LIGHT WITHIN REACH. VSS AT THIS TIME. HEAD OF BED INC TO 30 DEGREES. TOLERATED WELL. SET UP WITH SANDWICH TRAY AND DRINK. DENIES NAUSEA/PAIN.
--- NOTE | 2020-06-07 13:30 | NUR ---
RIGHT GROIN DRESSING C/D/I. NO S/S OF HEMATOMA NOTED. RIGHT PEDAL PULSE PALPABLE. PIV D/C'D WITH CATH TIP INTACT. TOLERATED WELL. DISCUSSED DISCHARGE INSTRUCTIONS WITH PT AND PT'S FAMILY. THEY VOICED UNDERSTANDING. PT INFORMED THAT HER PLAVIX AND PRAVASTATIN RXs WERE CALLED INTO [facility] PER PT REQUEST. SPOKE WITH CINDI. PT INSTRUCTED TO GET UP AND DRESSED AT THIS TIME. NO ASSISTANCE NEEDED. FAMILY AT BEDSIDE. CALL LIGHT LEFT WITHIN REACH.
--- NOTE | 2020-06-07 13:45 | NUR ---
RIGHT GROIN DRESSING C/D/I. NO S/S OF HEMATOMA NOTED. PT AMBULATED TO RESTROOM. VOIDED WITHOUT DIFFICULTY. STEADY GAIT NOTED.
--- NOTE | 2020-06-07 13:55 | NUR ---
PT REFUSED WHEELCHAIR. AMBULATED TO CAR. NO S/S OF DISTRESS NOTED. ALL BELONGINGS AND PAPERWORK IN HAND.
== END 2020-06-07 13:55 | disposition home or self-care (01) ==
LOC: D.CATH 07:31
PROVIDERS: ATTEND Internal Medicine Cardiovascular Disease
DX: I25.119 Atherosclerotic heart disease of native coronary artery with unspecified angina pectoris (principal); R94.39 Abnormal result of other cardiovascular function study; I10 Essential (primary) hypertension; R07.9 Chest pain, unspecified
CPT/HCPCS: 93571; C9600